=== PATIENT | male | born 1945 | race Two or more races ===

== ENCOUNTER → 2017-12-07 | Outpatient (CLI) | payer MEDICARE ==
[~2017-12-07] MED LIST: ALLOPURINOL100 MG PO; AMARYL4 MG PO; AMILORIDE HCL5 MG PO; AVAPRO150 MG PO; ECOTRIN81 MG PO; LIPITOR20 MG PO; MELOXICAM7.5 MG PO; METFORMIN HCL500 MG PO; NIACIN500 M2 PO; PLAVIX75 MG PO; STARLIX120 MG PO; TOPROL XL50 MG PO
--- NOTE | 2017-12-07 08:36 | Diagnostic Imaging Report ---
PROCEDURE: Frontal and lateral views of the chest. COMPARISON: Chest radiograph 05/30/16. INDICATIONS: COUGH FOR 7 DAYS FINDINGS: Lines/tubes: None. Lungs: Mild patchy bibasilar opacities, left greater than right. No evidence of pulmonary edema. Pleura: There is no pleural effusion or pneumothorax. Heart and mediastinum: The cardiomediastinal silhouette is unchanged. Bones: No acute bony abnormality. IMPRESSION: Mild patchy bibasilar opacities, left greater than right, which may represent atelectasis. Superimposed pneumonia is possible in the appropriate clinical setting. Dictated by: NAKIA ROTHMAN M.D. on 12/07/2017 at 8:42 Electronically approved by: NAKIA ROTHMAN M.D. on 12/07/2017 at 8:42
== END ==
LOC: RAD 08:00
PROVIDERS: ATTEND Internal Medicine
DX: J21.9 Acute bronchiolitis, unspecified (principal)
CPT/HCPCS: 71046

== ENCOUNTER → 2018-01-09 | Outpatient (CLI) | payer MEDICARE ==
--- NOTE | 2018-01-09 12:01 | Diagnostic Imaging Report ---
EXAMINATION: CHEST 2 VIEWS INDICATION: Bronchitis. COMPARISON: None FINDINGS: TUBES and LINES: None. LUNGS: Lungs are well inflated. Perihilar peribronchial hazy opacity could be due to bronchitis. There is no evidence of pneumonia or pulmonary edema. PLEURA: No pleural effusion or pneumothorax. HEART AND MEDIASTINUM: The cardiomediastinal silhouette is unremarkable. BONES AND SOFT TISSUES: No acute osseous lesion. Soft tissues are unremarkable. UPPER ABDOMEN: No free air under the diaphragm. IMPRESSION: Perihilar peribronchial hazy opacity could be due to bronchitis. Signed by: Dr. Linus Booker M.D. on 01/09/2018 11:58 AM
== END ==
LOC: RAD 11:20
PROVIDERS: ATTEND Internal Medicine
DX: J40 Bronchitis, not specified as acute or chronic (principal); J98.11 Atelectasis
CPT/HCPCS: 71046

== ENCOUNTER → 2018-02-03 | Outpatient (CLI) | payer MEDICARE ==
--- NOTE | 2018-02-26 17:14 | Polysomnography ---
DATE OF STUDY: February 03, 2018 TITRATION POLYSOMNOGRAPHY REPORT Mr. Ellis Sanches is a 72-year-old, extremely pleasant gentleman with a height of 5 feet, 6 inches, weight 215 pounds, BMI of 35, neck size of 19 inch, underwent titration polysomnography study at [facility] in [place] on 02/03/2018. For this study, patient was in the bed for 437 minutes with total sleep time of 357 minutes. Sleep efficiency is 82%. Sleep onset latency was 9.5 minutes. The patient had very large number of periodic leg movements during the sleep. Periodic leg movement index was 170 events per hour. Lowest oxygen saturation was 84%. The patient was in stage REM 18.8% of the sleep time, stage N1 28.6% of the sleep time, stage N2 36.8% of the sleep time and stage N3 15.8% of the sleep time. As per protocol, the patient was initiated on CPAP of 4 cm of water. Subsequently, the patient was requiring the BiPAP because of apnea, hypopnea, limb movements, snoring and multiple arousals. His pressure was titrated all the way up to 21/16 cm of water. However, based on current study the patient can have BiPAP of 17 and EPAP of 12 cm of water. Reassess clinical response in 2 months. RECOMMENDATIONS: 1. Initiate BiPAP 17/12 with large ResMed AirFit F10 full face mask. 2. Weight reduction would be appropriate. 3. The patient is to be reassessed in 2 months on his BiPAP compliance and AHI. 4. Avoid sedative, narcotics, hypnotics, antihistamines, alcohol, benzodiazepines. I5. If required, he can be referred to my office for further evaluation. Job#: [id number]
== END ==
LOC: SLEEP 19:25
PROVIDERS: ATTEND Internal Medicine
DX: G47.33 Obstructive sleep apnea (adult) (pediatric) (principal)
CPT/HCPCS: 95811

== ENCOUNTER → 2020-02-06 | Outpatient (CLI) | payer MEDICARE | LOC: RAD 10:02 | PROVIDERS: ATTEND Internal Medicine | DX: R06.02 Shortness of breath (principal) | CPT/HCPCS: 71046 ==